=== PATIENT | female | born 1970 | race Caucasian/White ===

== ENCOUNTER 2022-05-22 12:33 | Outpatient (RCR) | payer BC, SELFPAY ==
--- NOTE | 2022-05-22 13:32 | PTOPEVAL1 ---
Assessment and note entered by Ethel Carolina, PT, DPT Evaluation Information Assessment Status Evaluation Diagnosis karma knee pain Onset 1 month Subjective Information Pt states she does [employer]. She states when walking on an incline she feels pain in the front of her L knee and this started to go away with time. She also states twice in the last month or so her R knee has given out on her twice. She states outside of these few occurrences she does not usually have any knee pain. She reports no knee pain currently and no knee pain in the last week. Reported Pain Level Pain Score 0: Self Report Assessment PT Clinical Summary Tabitha presents to therapy today for her initial evaluation with a diagnosis of karma knee pain. Today she demonstrates excellent knee ROM and great knee strength grossly. She does demonstrates some minor increased knee instability with strength challenges. She has decreased flexibility of her karma 2 joint hip flexors as well as her ITB . Today she was instructed on a HEP to focus on post workout stretching and single leg strength challenges to increased medial and lateral knee instability. She will continue with this HEP on her own and follow up with the clinic if her pain persist. If we do not hear from her in the next 6 weeks she will be discharged. Pt is agreeable with this POC. Plan of Care Treatment Frequency and in one month, if needed Duration These treatments will address the objective and functional deficits as defined above. The patient will be advanced safely and appropriately in order for the patient to progress towards his/her prior level of function. Additional exercises will be introduced and as well as a comprehensive home exercise program upon discharge, if needed, ?to ensure carryover of functional gains achieved in the clinic. This treatment plan has been reviewed and agreement upon by the patient.
--- NOTE | 2022-07-05 13:54 | PTOPDC ---
Assessment and note entered by Ethel Carolina, PT, DPT Evaluation Information Assessment Status Discharge - Pt Not Present Diagnosis karma knee pain Onset 1 month Subjective Information Called and spoke with patient to follow up on HEP. She states she has not been doing the exercises but also does not have any pain. Assessment PT Clinical Summary Tabitha was evaluated on 05/22/22 and did not complete any treatment. She will be discharged at this time.
== END 2022-07-06 11:14 | disposition home or self-care (01) ==
LOC: ANHGOSHPT 12:33
PROVIDERS: PCP Family Medicine; Visit Provider Physician Assistant
DX: M25.561 Pain in right knee (principal); M25.562 Pain in left knee
CPT/HCPCS: 97110; 97161

== ENCOUNTER 2022-09-26 07:53 | Outpatient (CLI) | payer BC, SELFPAY ==
[2022-09-26 16:27] LABS: Kit Draw Collected
== END 2022-09-26 07:54 | disposition home or self-care (01) ==
LOC: ANHGOSHLAB 08:00
PROVIDERS: PCP Family Medicine; Visit Provider Physician Assistant
DX: F41.9 Anxiety disorder, unspecified (principal); F90.9 Attention-deficit hyperactivity disorder, unspecified type; Z79.899 Other long term (current) drug therapy
CPT/HCPCS: 36415

== ENCOUNTER 2024-03-24 15:13 | Outpatient (CLI) | payer OTHER, SELFPAY ==
--- NOTE | ~2024-03-24 | US_ITS ---
EXAMINATION: US soft tissue upper back DATE: 03/24/2024 15:29 INDICATION: Localized swelling, mass and lump, trunk. TECHNIQUE: Multiple grayscale and Doppler ultrasound images of the upper back were obtained. COMPARISON: None FINDINGS: There is an 11.1 x 1.4 x 11.6 cm subcutaneous mass in the upper back that is isoechoic to s ubcutaneous fat with similar echotexture. IMPRESSION: 1. 11.6 cm subcutaneous mass in the upper back, likely a lipoma. Reviewed, dictated and finalized at location A. L DEVELOPER
== END 2024-03-24 15:14 | disposition home or self-care (01) ==
LOC: MICIMG 15:13
PROVIDERS: PCP Student in an Organized Health Care Education/Training Program; Visit Provider Student in an Organized Health Care Education/Training Program
DX: R22.2 Localized swelling, mass and lump, trunk (principal)
CPT/HCPCS: 76604

== ENCOUNTER 2025-03-12 09:07 | Outpatient (CLI) | payer OTHER, SELFPAY ==
--- OUTSIDE RECORDS SUMMARY | 2025-03-12 09:12 | XMS_ITS | Clinical Summary ---
Author Organization [facility] Address [address] [place] [address] Care Team Providers Care News Editor Name Role Phone Kathy Hernandez MD Unavailable [phone] Sonam Carrion MD Primary Care Provider + Candice Tyler RN Unavailable Unavailable Allergies No known active allergies Medications albuterol HFA (PROVENTIL HFA,VENTOLIN HFA,PROAIR HFA) 90 mcg/actuation inhaler Active montelukast (SINGULAIR) 10 mg tablet Take 10 mg by mouth nightly. Active fluticasone furoate-vilante roL (BREO ELLIPTA) 100-25 mcg/dose diskus inhaler Inhale 1 puff daily Rinse mouth with water after use. Do not swallow. Active sarecycline (Seysara) 100 mg tablet Take 100 mg by mouth daily Active cetirizine (ZyrTEC) 10 mg tablet Take 10 mg by mouth daily Active buPROPion SR (WELLBUTRIN SR) 150 mg 12 hr tablet Take 1 tablet (150 mg total) by mouth every morning 08/07/2024 Active FLUoxetine (PROzac) 20 mg capsule Take 1 capsule (20 mg total) by mouth daily 08/09/2024 Active Active Problems Problem Noted Date Diagnosed Date Routine gynecological examination 11/10/2024 Assessment & Plan (11/10/2024 1:53 PM CDT): Here for annual exam. Normal contract preparer exam today. Encouraged regular exercise and healthy diet and lifestyle. Monthly SBEs encouraged. Annual mammograms recommended. Abnormal MRI, breast 10/19/2024 Overview (10/29/2024): 10/19/24 - Lt Axillary US results BENIGN, Screening Mammogram due 11/202410/14/24 - B/L Breast MRI - PROB BENIGN - shows prominent left axillary lymph nodes require further evaluation by MRI directed targeted/Second Look ultrasound - scheduled 10/19/24 Screening for cervical cancer 10/26/2021 Overview (10/26/2021): 10/05/21 - Pap - Negative, HPV negative H/O pelvic ultrasound 08/09/2021 Overview (08/09/2021): 07/2021 US for pelvic pressure: EMC 0.5cm. R OV NL. L OV not visualized; prominent vasculature seen in Left adnexa ,overall appears normal. At high risk for breast cancer 03/07/2021 Overview (03/07/2021): Breast Risk Assessment @ [facility] showed elevated risk at 22%. Pt in High Risk Program. Resolved Problems Problem Noted Date Diagnosed Date Resolved Date Skin lesion of breast 10/05/20212022 Assessment & Plan (10/05/2021 3:57 PM CDT): Area most likely consistent with a skin lesion and not breast tissue. Due to family history will order breast imaging. Left diagnostic mammogram and left breast ultrasound of the 4-5 o'clock area was ordered today. Patient to continue antibiotics as recommended by power superintendent. Patient to follow-up with power superintendent as scheduled on October 31. If the area is completely resolved and redness gone patient may decide to cancel her breast imaging. If redness or raised area underneath remains or patient desires- will refer to breast surgeon. Thickened endometrium 08/09/20212024 Assessment & Plan (08/09/2021 2:55 PM CDT): Check FSH/estradiol today. Reviewed US findings w/ pt. Discussed with pt that I will review US/visit with Dr. Hernandez and she may recommend an EMB in office. Reviewed expectations, risks of EMB and recommended pt take ibuprofen OTC 600-800mg one hour prior to visit. I will call pt with her recommendations. Pt verbalizes understanding. Vaginal irritation 07/31/2021 Assessment & Plan (07/31/2021 10:26 AM CDT): Check BD affirm-call pt with results. Discussed vulvar guidelines and advised to stop Suave soap to perineum. Discussed changes with age and advised pt no obvious infection on exam. Pelvic pain 07/31/2021 04/24/2022 Assessment & Plan (07/31/2021 10:26 AM CDT): Check US to r/o ovarian/uterine cause of discomfort. Encounters Date Type Department Care Team Description 02/26/2025 Results Follow-Up [facility] [address] [place] [id number] Germaine Trejo NP Screening Mammogram Bilateral W Jayce 02/22/2025 11:30 AM SHOW JUMPING INSTRUCTOR - 02/22/2025 11:59 PM SHOW JUMPING INSTRUCTOR Hospital Encounter [facility] - Imaging [address] [place] [id number] Kathy Hernandez MD Breast cancer screening, high risk patient Discharge Disposition: Discharge to home or self care from Last 3 Months Surgical History Surgery Date Site/Laterality Comments BREAST BIOPSY 04/22/2008 - 04/21/2009 Right Benign ENDOMETRIAL BIOPSY 08/21/2021 Negative Medical History Medical History Date Comments Asthma Mainly caused by pet dander - gets allergy shots weekly so can have a dog History of female infertility [place] d 5 rounds of unsuccessful IVF and spontaneously conceived 2 yrs after adopting At high risk for breast cancer P er pt had BRCA done and is suppose to be getting twice a year imaging....02/2018 - BRCA T-C LTR 25%....annual screening mamm/alternation B/L breast MRI yearly Abnormal MRI, breast 10/19/2024 10/19/24 - Lt Axillary US results BENIGN, Screening Mammogram due 11/2024....10/14/24 - B/L Breast MRI - PROB BENIGN - shows prominent left axillary lymph nodes require further evaluation by MRI directed targeted/Second Look ultrasound - scheduled 10/19/24 Anxiety Family History Medical History Relation Name Comments Asperger's syndrome Brother Sleep apnea Brother Tuberous sclerosis Brother Pre-diabetic Father Lung cancer Maternal Grandfather history of smoking Stroke Maternal Grandmother Ankylosing spondylitis Mother Breast cancer Mother BRCA gene NEG Skin cancer Mother Family history of skin cancer - (Added by TW Conv) Lung cancer Paternal Grandfather history of smoking Colon cancer Paternal Grandmother Breast cancer Paternal Great-Grandmother unknown age of onset Relation Name Status Comments Brother Father Father's Sister Alive Maternal Grandfather uncerta in of age at Maternal Grandmother (Age 69) Mother Alive Mother's Sister 1 Alive Mother's Sister 2 Alive Paternal Grandfather uncerta in of age at Paternal Grandmother (Age 86) Paternal Great-Grandmother p aternal grandfather's mother Social History Tobacco Use Types Packs/Day Years Used Date Smoking Tobacco: Never Smokeless Tobacco: Never AUDIT-C Answer Date Recorded Q1: How often do you have a drink containing alc ohol? 2-3 times a week 07/31/2021 Average Number of Drinks Not on file 022 Frequency of Binge Drinking Not on file 07/21 Comments No Sex and Gender Information Value Date Recorded Sex Assigned at Not on file Legal Sex Female 4:53 AM SHOW JUMPING INSTRUCTOR Gender Identity Not on file Sexual Orientation Not on file Obstetrics History Para Term AB IAB SAB Ectopic Multiple Livin g Live Births 1 1 1 1 1 Date Outcome GA Total Labor Labor/2nd/3rd Weight Sex Type Anes PTL Yahaira A1 A5 Name Clin 2007 Term 3.742 kg (8 lb 4 oz) M Vag-Sp ont Comments 2005 - Adopted a son Last Filed Vital Signs Vital Sign Reading Time Taken Comments Blood Pressure 116/68 11/10/2024 1:14 PM CDT Pulse 78 02/08/2014 3:26 PM CDT Temperature - - Respiratory Rate - - Oxygen Saturation 98% 02/08/2014 3:26 PM CDT Inhaled Oxygen Concentration - - Weight 76.7 kg (169 lb) 02/22/2025 12:19 PM SHOW JUMPING INSTRUCTOR Height 158.8 cm (5' 2.5) 02/22/2025 12:19 PM CS T Body Mass Index 30.42 02/22/2025 12:19 PM SHOW JUMPING INSTRUCTOR Plan of Treatment Health Maintenance Due Date Last Done Comments Colon Cancer Screening-Colonoscopy 1972 Depression Screening 1972 Hepatitis C Screening 1972 Hepatitis B Screening 1990 Pneumococcal vaccine <65 (2 of 2 - PCV) 02/11/2021 02/12/2020 Influenza Vaccine (#1) 2024 3, 02/03/2021, 01/20/2020, Additional history exists Cervical Cancer Screening 11/10/20252024, 11/10/2024, 10/05/2021, Additional history exists Regular Well Visit/Exam 18-64 11/10/2025 11/10/2024, 10/05/2021 Breast Cancer Screening-Mammogram 02/22/2026 02/22/2025, 12/18/2023, 10/15/2022, Additional history exists DTaP/Tdap/Td Vaccine (3 - Td or Tdap) 12/28/2026 12/28/2016, 03/13/2005 Zoster Vaccine Completed 09/06/2022, 04/26/2022 Procedures Procedure Name Priority Date/Time Associated Diagnosis Comments SCREENING MAMMOGRAM BILATERAL W JAYCE Schedule Routine, Read Routine (OP Routine) 02/22/2025 12:31 PM SHOW JUMPING INSTRUCTOR Breast cancer screening, high risk patient HIGH RISK HPV DNA DETECTION WITH GENOTYPING Routine 11/10/2024 3:07 PM CDT Routine gynecological examination Special screening examination for human papillomavirus (HPV) Screening for malignant neoplasm of the cervix from Last 3 Months or Most Recently Relevant to Health Maintenance Results * Screening Mammogram Bilateral W Jayce (02/22/2025 12:31 PM SHOW JUMPING INSTRUCTOR) Anatomical Region Laterality Modality Breast Bilateral Mammography Impressions 02/25/2025 3:17 PM SHOW JUMPING INSTRUCTOR Bilateral No evidence of malignancy in either breast. OVERALL BI-RADS FINAL ASSESSMENT: 1 - Negative RECOMMENDATION: Recommend bilateral annual screening mammography. Narrative 02/25/2025 3:17 PM SHOW JUMPING INSTRUCTOR EXAMINATION: Screening Mammogram Bilateral W Jayce: 02/22/2025 COMPARISON: Relevant prior studies available at the time of interpretation were reviewed, including the most recent mammogram on: 12/18/2023. TECHNIQUE: Mammography was performed with 2D and 3D digital breast tomosynthesis (DBT) images. CAD was utilized. BREAST PARENCHYMAL COMPOSITION: There are scattered areas of fibroglandular density. FINDINGS: Bilateral There is no suspicious mass, calcification, or architectural distortion in either breast. us Kathy Hernandez MD IMG MAMMO PROCEDURES Final Result * High Risk HPV DNA Detection with Genotyping (Molecular component) (11/10/2024 3:07 PM CDT) HPV HR 16 Not Detected Not Detected HPV HR [address] [facility] HPV HR Non 16/[address] Detected [facility] Comment: Interpretive Data Nucleic acid amplification for detection of high-risk Human Papilloma virus (HPV) is performed by the Sarah Sherry 4800 HPV test, which specifically detects high-risk HPV-16, 18, 31, 33, 35, 39, 45, 51, 52, 56, 58, 59, 66, and 68 genotypes. This assay has been approved by the [place] Food and Drug Administration for detection of HPV in cervical specimens collected by a physician using an endocervical brush/spatula or cervical broom and placed in the ThinPrep Pap Test PreservCyt collection containers. The performance characteristics of this test have been verified by the [facility]. Correlate with separately reported cytology results, as applicable. Interpretive data last revised 22 Endocervical 11/10/2024 3:07 PM CDT 11/10/2024 3:[address] [facility] - 11/11/2024 9:52 PM CDT Clinical history and diagnosis->z01.419 Number of vials->1 Testing type->Screening Last menstrual period (date if known)->none us Kathy Hernandez MD LAB BODY FLUIDS AND STOOLS ORDERABLES Final Result [facility] [address] Department [place] [address] from Last 3 Months or Most Recently Relevant to Health Maintenance Insurance [facility] [id number] [facility] [id number] [facility] Care Teams News Editor Relationship Specialty Start Date End Date Sonma Carrion MD [address] [place] [address] PCP - General Family Medicine 09/19/22 Kathy Hernandez MD [address] [place] [address] Consulting Physician Obstetrics and Gynecology 07/27/21 Candice Tyler, RN [facility] Breast Risk Program Nurse 06/19/23
--- OUTSIDE RECORDS SUMMARY | 2025-03-12 09:12 | XMS_ITS | Patient Health Record ---
Author Organization [facility] As [employer] [facility] Address [address] [place] [address] Support Name Relationship Address Phone DONAVAN BARRETT Emergency Contact Unknown ITZEL BARRETT Guarantor Unknown [phone] Reason For Referral No Information Medications Medication SIG (Take, Route, Frequency, Duration) Notes Start Date End Date Status buPROPion HCl ER (SR) 150 MG Tablet Extended Release 12 Hour Oral 05/14/2023 Active buPROPion HCl ER (XL) 300 MG Tablet Extended Release 24 Hour Oral 05/14/2023 Active Montelukast Sodium 10 MG Tablet Oral 05/14/2023 Active Arnuity Ellipta 200 MCG/ACT Aerosol Powder Breath Activated Inhalation 05/14/2023 Active FLUoxetine HCl 20 MG Capsule Oral 05/14/2023 Active Breo Ellipta 100-25 MCG/INH Aerosol Powder Breath Activated Inhalation 05/14/2023 Active ProAir HFA 108 (90 Base) MCG/ACT Aerosol Solution Inhalation 05/14/2023 Act patricia Social History Social History Additional Details Category Social Info Options Details Migrated Social History Migrated Social History Alcohol Intake: Moderate 06/08/2022,Tobacco Years: Never smoker 05/10/2022 Plan Of Treatment No Information Insurance Providers Payer Name Payer Address Payer Phone Subscriber Number Group Number Insured Name Patient Relationship to Insured Coverage Start Date Coverage End Date [facility] Ppo [address] [place] [address] [id number] DONAVAN BARRETT Spouse - patient is the spouse of the insured Medical (General) History Surgical History Surgery Date(Month/Year) Other
--- OUTSIDE RECORDS SUMMARY | 2025-03-12 09:12 | XMS_ITS | Clinical Summary ---
Author Organization [facility] Address [address] [place] [address] Care Team Providers Care Pharmacy Graduate Intern Name Role Phone Thuan Valdez MD Primary Care Provider [phone] Social History Tobacco Use Types Packs/Day Years Used Date Smoking Tobacco: Never Assessed Comments Unknown Sex and Gender Information Value Date Recorded Sex Assigned at Not on file Legal Sex Female 11:10 AM CDT Gender Identity Not on file Sexual Orientation Not on file Plan of Treatment Health Maintenance Due Date Last Done Comments Colorectal Cancer Screening Colonoscopy (10 Years) 1972 Annual Physical 1975 Hepatitis C 1990 DTaP, Tdap and Td Vaccines ( 1 - Tdap) 1991 Hepatitis B Vaccines (1 of 3 - 19+ 3-dose series) 1991 Cervical Cancer Screening Pa p with HPV Testing (Age 30 to 64) Every 5 Years 2002 Mammogram Screening 2012 Pneumococcal Vaccine: 50+ Ye ars (1 of 1 - PCV) 2022 Zoster Vaccines (1 of 2) 2022 Cervical Cancer Screening Pa p Smear (Age 30 to 64) Every 3 Years 10/05/2024 10/05/2021 Cervical Cancer Screening with HPV 10/05/2024 COVID-19 Vaccine ( - 2024-2 6 season) 2024 Influenza Adult (#1) 2025 02/11/2019 Hepatitis A Vaccines Aged Out No long er eligible based on patient's age to complete this topic Meningococcal B Vaccine Aged Out No l onger eligible based on patient's age to complete this topic Meningococcal Vaccine Aged Out No irene june eligible based on patient's age to complete this topic RSV Immunizations Under 20 Months Aged Out No longer eligible based on patient's age to complete this topic Care Teams Pharmacy Graduate Intern Relationship Specialty Start Date End Date Thuan Valdez MD [address] [place] [address] PCP - General FAMILY PRACTICE 10/31/21
--- OUTSIDE RECORDS SUMMARY | 2025-03-12 09:12 | XMS_ITS | Encounter Summary ---
Author Organization [facility] Address [address] [place] [address] Phone Care Team Providers Care Atmospheric Drier Tender Name Role Phone Tisha Valdez MD Primary Care Provider [phone] Kathy Hernandez MD Unavailable [phone] Sonam Carrion MD Primary Care Provider + Candice Tyler RN Unavailable Unavailable Encounter Details Date Type Department Care Team (Late st Contact Info) Description 08/22/2017 Orders Only [facility] ProviderMarshall MD [address] [place] [id number] Social History Tobacco Use Types Packs/Day Years Used Date Smoking Tobacco: Never Comments Unknown Sex and Gender Information Value Date Recorded Sex Assigned at Not on file Legal Sex Female 4:53 AM OPTION TRADER Gender Identity Not on file Sexual Orientation Not on file documented as of this encounter Plan of Treatment Not on file documented as of this encounter Procedures Procedure Name Priority Date/Time Associated Diagnosis Comments CYTOLOGY 08/22/2017 12:00 AM CDT documented in this encounter Results * CYTOLOGY (08/22/2017 12:00 AM CDT) Narrative 08/22/2017 12:00 AM CDT Ordered by an unspecified provider. Historical Provider LAB CYTOLOGY ORDERABLES F inal Result documented in this encounter Visit Diagnoses Not on filedocumented in this encounter Care Teams Atmospheric Drier Tender Relationship Specialty Start Date End Date Tisha Valdez MD [address] [place] [address] PCP - General 09/26/16 09/18/22 Sonam Carrion MD [address] [place] [address] PCP - General Family Medicine 09/19/22 Kathy Hernandez MD [address] [place] [address] Consulting Physician Obstetrics and Gynecology 07/27/21 Candice Tyler, [facility] Breast Risk Program Nurse 06/19/23 documented as of this encounter
--- OUTSIDE RECORDS SUMMARY | 2025-03-12 09:12 | XMS_ITS | Clinical Summary ---
Author Organization Address [address] [facility] Attn: Epic Prelude ADT [place] [address] Care Team Providers Care Equipment Maintenance Engineer Name Role Phone Unavailable Primary Care Provider Unavailabl e Social History Tobacco Use Types Packs/Day Years Used Date Smoking Tobacco: Never Assessed Comments Unknown Sex and Gender Information Value Date Recorded Sex Assigned at Not on file Legal Sex Female 3:21 AM ACQUISITION ANALYST Gender Identity Not on file Sexual Orientation Not on file Plan of Treatment Health Maintenance Due Date Last Done Comments DTAP/TDAP/TD VACCINES (1 - Tdap) 1991 HEPATITIS B VACCINES (1 of 3 - 19+ 3-dose series) 10/1990 HPV/Cotest (21-29) 1993 CERVICAL CANCER SCREENING 2002 HPV/Cotest (30-65) 2002 PAP SMEAR 2002 BREAST CANCER SCREENING 2012 COLORECTAL SCREENING 2017 Colorectal Cancer Screening 2017 FIT-DNA Q 3 years 2017 FIT/FOBT Q 1 year 2017 Flex Sig/CT Colonography Q 5 years 2017 ZOSTER VACCINE (1 of 2) 2022 INFLUENZA VACCINE (#1) 2024 Insurance [employer] Member Subscriber Plan / Payer (Ef fective for All Dates) Name:LEONIDES MIR Relation to Subscriber:Spouse Name:IZTEL MIR Payer ID:Not on file Group ID:Not on file Type:RX Commercial Address: [address]
--- OUTSIDE RECORDS SUMMARY | 2025-03-12 09:12 | XMS_ITS | Encounter Summary ---
Author Organization [employer] [facility] Address [address] [place] [address] Care Team Providers Care Protective Services Case Worker Name Role Phone Unavailable Primary Care Provider Unavailabl e Encounter Details Date Type Department Care Team (Late st Contact Info) Description 04/24/2004 Emergency [facility] STDavid Wright MD NO ADDRESS ON FILE Er, Authorized P NO ADDRESS ON FILE ASTHMA UNSPECIFIED (Primary Dx) Social History Tobacco Use Types Packs/Day Years Used Date Smoking Tobacco: Never Assessed Comments Unknown Sex and Gender Information Value Date Recorded Sex Assigned at Not on file Legal Sex Female 3:21 AM CHILD NURSE Gender Identity Not on file Sexual Orientation Not on file documented as of this encounter Plan of Treatment Not on file documented as of this encounter Visit Diagnoses Diagnosis Unspecified asthma(493.90)- Primary Unspecified asthma documented in this encounter
--- OUTSIDE RECORDS SUMMARY | 2025-03-12 09:12 | XMS_ITS | Encounter Summary ---
Author Organization [facility] Address [address] [place] [address] Care Team Providers Care Welder Machine Operator Name Role Phone Kahty Hernandez MD Unavailable Sonam Carrion MD Primary Care Provider + Candice Tyler RN Unavailable Unavailable Encounter Details Date Type Department Care Team (Late st Contact Info) Description 02/26/2025 Results Follow-Up [facility] [address] [place] [address] Germaine Trejo, CARLY [address] [facility] [address] [facility] [address] [place], [place] [id number] Screening Mammogram Bilateral W Jayce Social History Tobacco Use Types Packs/Day Years [...] on file Legal Sex Female 4:53 AM MORNING NEWS PRODUCER Gender Identity Not on file Sexual Orientation Not on file documented as of this encounter Plan of Treatment Not on file documented as of this encounter Visit Diagnoses Not on filedocumented in this encounter Care Teams Welder Machine Operator Relationship Specialty Start Date End Date Sonam Carrion MD [address] [place] [address] PCP - General Family Medicine 09/19/22 Kathy Hernandez MD [address] [place] [address] Consulting Physician Obstetrics and Gynecology 07/27/21 Candice Tyler, T[facility]EN [facility] Breast Risk Program Nurse 06/19/23 documented as of this encounter
--- OUTSIDE RECORDS SUMMARY | 2025-03-12 09:12 | XMS_ITS | Encounter Summary ---
Author Organization [facility] Address [address] [place] [address] Care Team Providers Care Residential Substance Abuse Counselor Name Role Phone Tisha Valdez MD Primary Care Provider [phone] Kathy Hernandez MD Unavailable [phone] Sonam Carrion MD Primary Care Provider + Candice Tyler RN Unavailable Unavailable Encounter Details Date Type Department Care Team (Late st Contact Info) Description 10/27/2019 Telephone [facility] Neuro Diagnostics [address] [place] [address] Angy Najera [place] Social History Tobacco Use Types Packs/Day Years Used Date Smoking Tobacco: Never Comments No Sex and Gender Information Value Date Recorded Sex Assigned at Not on file 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 Gender Identity Not on file Sexual Orientation Not on file documented as of this encounter Plan of Treatment Not on file documented as of this encounter Visit Diagnoses Not on filedocumented in this encounter Care Teams Residential Substance Abuse Counselor Relationship Specialty Start Date End Date Tisha Valdez MD [address] [place] [address] PCP - General 09/26/16 09/18/22 Sonam Carrion MD [facility] [facility] [address] [place] [address] PCP - General Family Medicine 09/19/22 Kathy Hernandez MD [id number] [place] [address] Consulting Physician Obstetrics and Gynecology 07/27/21 Candice Tyler, [facility] Breast Risk Program Nurse 06/19/23 documented as of this encounter
--- OUTSIDE RECORDS SUMMARY | 2025-03-12 09:12 | XMS_ITS | Encounter Summary ---
Author Organization [facility] Address [address] [place] [address] Care Team Providers Care Machine Tank Operator Name Role Phone Tisha Valdez MD Primary Care Provider [phone] Kathy Hernandez MD Unavailable [phone] Sonam Carrion MD Primary Care Provider + Candice Tyler RN Unavailable Unavailable Encounter Details Date Type Department Care Team (Late st Contact Info) Description 12/01/2020 Telephone [facility] - Imaging [address] [place] [address] Transcribed Order, Provider Social History Tobacco Use Types Packs/Day Years Used Date Smoking Tobacco: Never Comments No Sex and Gender Information Value Date Recorded Sex Assigned at Not on file 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 Gender Identity Not on file Sexual Orientation Not on file documented as of this encounter Plan of Treatment Not on file documented as of this encounter Visit Diagnoses Not on filedocumented in this encounter Care Teams Machine Tank Operator Relationship Specialty Start Date End Date Tisha Valdez MD [address] [place] [address] PCP - General 09/26/16 09/18/22 Sonam Carrion MD [address] [facility] [address] [place] [address] PCP - General Family Medicine 09/19/22 Kathy Hernandez MD [address] [facility] [address] [place] [address] Consulting Physician Obstetrics and Gynecology 07/27/21 Candice Tyler, [facility] Breast Risk Program Nurse 06/19/23 documented as of this encounter
[2025-03-12 11:38] LABS: Hematocrit 43.0 % (37.0-47.0); Hemoglobin 14.3 g/dL (12.0-15.0); Immature Granulocyte Percent A 0.5 % (0-0.5); Lymphocytes Absolute Auto 1.66 K/mm3 (0.9-3.2); Mean Corpuscular HGB Conc 33.3 g/dl (32-36); Mean Corpuscular Hemoglobin 31.4 pg (26-34); Mean Corpuscular Volume 94.5 fl (80-100); Nucleated Red Blood Cells Absolute Auto 0.000 K/mm3 (0.0-0.012); Nucleated Red Blood Cells Perc 0.0 % (0.0-0.2); Platelet Count Result 291 k/mm3 (150-375); Red Blood Count 4.55 M/mm3 (4.2-5.4); White Blood Count 6.5 K/mm3 (4.5-10.0)
[2025-03-12 11:49] LABS: Alanine Aminotransferase 19 U/L (6-35); Albumin Level 3.9 g/dL (3.5-5.1); Alkaline Phosphatase 92 U/L (38-126); Anion Gap 5 mmol/L (4-12); Aspartate Amino Transferase 37 U/L (14-36); Bilirubin,Total 0.4 mg/dL (0.2-1.3); Blood Urea Nitrogen 10 mg/dL (7-17); Calcium 9.1 mg/dL (8.4-10.2); Carbon Dioxide 27 mmol/L (22-30); Chloride 104 mmol/L (98-107); Cholesterol 212 mg/dL (0-200); Estimated Glomerular Filt Rate > 60; Glucose 95 mg/dL (65-110); HDL Direct 80 mg/dL; Potassium 3.9 mmol/L (3.4-5.0); Sodium 136 mmol/L (137-145); Total Protein 6.6 g/dL (6.3-8.2); Triglycerides 70 mg/dL (<150)
[2025-03-12 12:25] LABS: Ferritin 135.00 ng/mL (11.1-264)
== END 2025-03-12 09:08 | disposition home or self-care (01) ==
LOC: ANHGOSHLAB 09:08
PROVIDERS: PCP Family Medicine; Visit Provider Family Medicine
DX: Z00.00 Encounter for general adult medical examination without abnormal findings (principal); Z11.59 Encounter for screening for other viral diseases; D64.9 Anemia, unspecified
CPT/HCPCS: 36415; 80053; 80061; 82728; 85025; 86803